=== PATIENT | female | born 1980 | race Caucasian/White ===

== ENCOUNTER 2023-01-19 08:15 | Outpatient (CLI) | payer BC ==
[2023-01-19 09:20] LABS: BASOPHILS # (AUTO) 0.1 X10'3 (0-0.2); BASOPHILS % (AUTO) 0.8 % (0-1); EOSINOPHILS # (AUTO) 0.4 X10'3 (0-0.9); EOSINOPHILS % (AUTO) 6.6 % (0-6); HEMATOCRIT 47.9 % (35.0-45.0); HEMOGLOBIN 15.7 g/dl (12.0-16.0); LYMPHOCYTES # (AUTO) 1.3 X10'3 (1.1-4.8); LYMPHOCYTES % (AUTO) 21.8 % (21-51); MEAN CORPUSCULAR HEMOGLOBIN 29.4 PG (27.0-31.0); MEAN CORPUSCULAR HGB CONC 32.7 g/dL (33.0-36.5); MEAN PLATELET VOLUME 7.3 FL (7.4-10.4); MONOCYTES # (AUTO) 0.5 X10'3 (0-0.9); MONOCYTES % (AUTO) 7.7 % (2-12); NEUTROPHILS # (AUTO) 3.8 X10'3 (1.8-7.7); NEUTROPHILS % (AUTO) 63.1 % (42-75); PLATELET COUNT 306 X10'3 (140-440); RED BLOOD COUNT 5.32 X10'6 (4.20-5.60); RED CELL DISTRIBUTION WIDTH 13.7 % (11.5-14.5)
[2023-01-19 09:39] LABS: ALANINE AMINOTRANSFERASE 65 U/L (12-78); ALBUMIN 3.8 G/DL (3.4-5.0); ALBUMIN/GLOBULIN RATIO 0.8 (1.1-1.5); ALKALINE PHOSPHATASE 97 IU/L (46-116); ANION GAP 7 (8-16); ASPARTATE AMINO TRANSFERASE 43 U/L (10-37); BILIRUBIN,TOTAL 0.7 MG/DL (0.1-1.0); BLOOD UREA NITROGEN 9 MG/DL (7-18); BUN/CREATININE RATIO 12.3 (10.0-20.0); C-REACTIVE PROTEIN 0.33 MG/DL (0.0-0.5); CALCIUM 9.1 MG/DL (8.5-10.1); CHLORIDE 103 MMOL/L (99-107); CHOL/HDL RATIO 2.5 (0.00-4.99); CHOLESTEROL 160 MG/DL (0-200); CREATININE 0.73 MG/DL (0.40-0.90); GLUCOSE 99 MG/DL (70-104); HDL CHOLESTEROL 64 MG/DL (35-60); LDL CHOLESTEROL 84 MG/DL (50-100); POTASSIUM 3.8 MMOL/L (3.5-5.1); SODIUM 137 MMOL/L (135-145); TOTAL CARBON DIOXIDE 26.9 MMOL/L (24-32); TOTAL PROTEIN 8.5 G/DL (6.4-8.2); TRIGLYCERIDES 76 MG/DL (20-135); eGFR 87 ML/MIN
[2023-01-19 10:20] LABS: HEMOGLOBIN A1C 5.2 % (4.5-6.2)
[2023-01-19 10:29] LABS: RHEUM FACTOR QUAL REFLEX TITER NEGATIVE (Neg)
[2023-01-20 10:00] LABS: ANTINUCLEAR ANTIBODIES Positive (Negative); INSULIN 19.6 uIU/mL (2.6-24.9)
[2023-01-21 20:45] LABS: CCP IGG ANTIBODIES 10 units (0-19)
== END 2023-01-19 23:59 | disposition home or self-care (01) ==
LOC: LAB 08:15
PROVIDERS: ATTEND Physician Assistant
DX: K76.0 Fatty (change of) liver, not elsewhere classified (principal); M19.079 Primary osteoarthritis, unspecified ankle and foot; R79.89 Other specified abnormal findings of blood chemistry; E66.01 Morbid (severe) obesity due to excess calories
CPT/HCPCS: 36415; 80053; 80061; 83036; 83525; 85025; 85651; 86038; 86140; 86200; 86430

== ENCOUNTER 2023-02-20 09:51 | Emergency (ER) | payer BC ==
[~2023-02-20] VITALS: Ht 165.1 cm; Wt 124.6 kg
[2023-02-20 09:55] VITALS: BP 127/78; PULSE 77; RESP 18; TEMP 97; O2SAT 98
[2023-02-20] MEDS ORDERED: GUAI120015 PO (12:21)
[2023-02-20] MEDS ORDERED: SODI30SP3 BOTHNARES (12:21)
== END 2023-02-20 12:47 | disposition home or self-care (01) ==
LOC: ER 09:51
DX: J06.9 Acute upper respiratory infection, unspecified (principal); Z20.822 Contact with and (suspected) exposure to COVID-19
CPT/HCPCS: 36415; 87811; 99283

== ENCOUNTER 2023-05-03 11:05 | Outpatient (CLI) | payer BC ==
[~2023-05-03 11:05] MED LIST: GUAI120015 PO; SODI30SP3 BOTHNARES
== END 2023-05-03 23:59 | disposition home or self-care (01) ==
LOC: RAD 11:05
PROVIDERS: ATTEND Physician Assistant
DX: M47.816 Spondylosis without myelopathy or radiculopathy, lumbar region (principal); M25.551 Pain in right hip; M25.552 Pain in left hip; R76.8 Other specified abnormal immunological findings in serum; M25.78 Osteophyte, vertebrae
CPT/HCPCS: 36415; 72110; 73521; 86038